=== PATIENT | female | born 1990 | race Caucasian/White ===

== ENCOUNTER 2019-03-09 20:55 | Emergency (ER) | payer MEDICAID, SELFPAY ==
[2019-03-09 20:58] VITALS: BP 131/84; PULSE 86; RESP 16; TEMP 36.7; O2SAT 100
--- NOTE | 2019-03-09 21:11 | DI.CT_ITS ---
SYMPTOMS/DIAGNOSIS: RIGHT LOWER ABDOMINAL PAIN CT SCAN OF THE ABDOMEN AND PELVIS: CT scan of the abdomen and pelvis was performed following the uneventful administration of intravenous contrast material. The visualized lung bases are clear. The liver is normal in size. No suspicious hepatic mass is seen. The portal, superior mesenteric and splenic veins are patent. The gallbladder is negative. There is no biliary ductal dilatation. The pancreas is unremarkable, as are the spleen and adrenal glands. The kidneys show normal and symmetric enhancement. No evidence of a solid renal mass or obstruction. The urinary bladder is intact. The reproductive organs are unremarkable. The bowel shows no evidence of obstruction, inflammation or infection. There is a normal appendix present. The aorta is of normal caliber. No significant abdominal or pelvic adenopathy, ascites or pneumoperitoneum is present. No acute osseous abnormality is identified. There is bilateral sacroiliitis present. IMPRESSION: 1. No evidence of an acute abdomen. 2. Bilateral sacroiliitis.
--- NOTE | 2019-03-09 21:12 | W.ED.GENAD ---
Discharge Plan Disposition Patient Disposition: HOME Condition: Stable Discharge Details Chief Complaint: Abd Prob Clinical Impression: Abdominal pain Primary Care Provider: Michelle Hensely ED Provider: Ian Mathur Home Meds and New Rx's Prescriptions: New ketorolac 10 mg tablet 10 mg PO Q6H PRN (Reason: pain) 5 Days Qty: 20 RF: 0 No Action sennosides-docusate sodium [Senna Laxative-Stool Softener] 8.6-50 mg tablet 2 tab PO .AM PRNRF: 0 acetaminophen [Tylenol Extra Strength] 500 mg tablet 500 mg PO Q6H PRNRF: 0 albuterol sulfate [ProAir HFA] 90 mcg/actuation HFA aerosol inhaler 2 puff IH Q4H PRNRF: 0 L norgest/e.estradiol-e.estrad [Seasonique] 0.15 mg-30 mcg (84)/10 mcg (7) tablets,dose pack,3 month 1 tab PO DAILY Qty: 91 RF: 4 Discharge Instructions Instructions: Abdominal Pain (ED) Additional Instructions: your lab work and cat scan did not show any concerning findings follow up with [facility] within one week if you feel you are becoming more ill or having significant more pain return to the emergency department do not take the ibuprofen with toradol, if you decide to take toradol do not take ibuprofen for at least 6 hours Medical Decision Making 28 yo female with hx of endometriosis and ovarian cyst comes in with worsening rlq abd pain since this AM. Denies vomit, fevers, chills. On exam she does have pain over the rlq. NO other pain elsewhere in the abdomen. No vaginal bleeding or discharge. Given location of pain will obtain lab work and ct imaging to further eval for causes of her pain such as appendicitis ct imaging and labs unremarkable, has mild rlq pain. Could be small cyst vs endometriosis. Will d/c with toradol po as she states this has helped in the past and advised f/u with her obygn provider and return precautions given Differential Diagnosis appendicitis, ovarian cyst Imaging Data Radiologic Study: Attestation: I personally reviewed and interpreted this imaging study as follows: Imaging: CT Scan Radiologist's impression: IMPRESSION: No acute findings. Bilateral sacroiliitis. Lab Data Lab results reviewed: Yes I reviewed the patient's lab results. HPI General Mode of arrival: ambulatory. Date/Time Provider Initiated Documentation: 03/09/19 20:56. Limitations to Documentation: no limitations. Information obtained by: patient. History of Present Illness 28 year old F presents to the emergency department with the chief complaint of right lower abdominal pain, described as moderate, Quality is described as stabbing and aching, and is localized to the abdomen. Patient reports no radiation. Patient started experiencing this day(s) (1) and it has been constant. No relieving factors improve symptom(s), No exacerbating factors reported . Patient did receive the following treatments prior to arrival, none Related Data Home Medications Medication Instructions Recorded Confirmed acetaminophen 500 mg tablet 500 mg PO Q6H PRN 09/18/18 03/09/19 albuterol sulfate 90 mcg/actuation 2 puff IH Q4H PRN gm 09/18/18 03/09/19 aerosol inhaler sennosides 8.6 mg-docusate sodium 2 tab PO .AM PRN tab 09/18/18 03/09/19 50 mg tablet L norgest/e.estradiol-e.estrad 1 tab PO DAILY #91 dose pk 01/09/19 03/09/19 0.15 mg-30 mcg (84)/10 mcg(7) tabs,3mos ketorolac 10 mg PO Q6H PRN 5 Days #20 tab 03/09/19 Previous Rx's Medication Instructions Recorded L norgest/e.estradiol-e.estrad 1 tab PO DAILY #91 dose pk 01/09/19 0.15 mg-30 mcg (84)/10 mcg(7) tabs,3mos ketorolac 10 mg PO Q6H PRN 5 Days #20 tab 03/09/19 Allergies Allergy/AdvReac Type Severity Reaction Status Date / Time lidocaine Allergy Severe swelling Verified 03/09/19 21:02 at site -golf ball sized Penicillins Allergy Severe rash ans Verified 03/09/19 21:02 respiratory distress procainamide Allergy Unknown Verified 03/09/19 21:02 General Stated Complaint: Abd Prob SAL: 3 Review of Systems Review of Systems All systems reviewed & are unremarkable except as noted in HPI and below Constitutional Denies chills, Denies fever(s) and Denies weakness ENT Denies change in voice Cardiovascular Denies chest pain and Denies dyspnea Respiratory Denies dyspnea Gastrointestinal Denies nausea and Denies vomiting Neurologic Denies weakness Allergic/Immunologic Denies urticaria PFSH Surgical History (Updated 11/07/18 @ 17:29 by Elise Garces MD) H/O endoscopy (Ruled-out) H/O laparoscopy (Resolved) History of tonsillectomy (Resolved) Family History (Updated 11/07/18 @ 17:29 by Elise Garces MD) Sister Abnormal uterine bleeding (AUB) Social History (Updated 11/07/18 @ 17:32 by Elise Garces MD) Smoking/Tobacco Use Status: Current every day Alcohol Intake: current Alcohol Intake frequency: a few times a month Drug use: Never Substance use type: does not use Household members: spouse and children Number of Children: 3 current occupation: [employer] Sexually active: Yes (Experiences deep dyspareunia) What is your relationship status?: Panel score (0-1 are the most socially isolated patients): 1 Seatbelt use: always Additional Social history: H-[employer]. 5 years. Children: Maricel Razabeth 7yo, Alfonzo 5 yo, Annie 2 yo. Female Reproductive History Menstrual control method: permanent sterilization History History 4 Para Hx # Term Pregnancies 3 Multiple births Hx # Pregnancies Ectopic pregnancies AB induced Hx Number of Living Children AB spontaneous Exam Const General: no acute distress Orientation: alert HENMT Head: normal to inspection Ears: external ears normal General nose exam: external nose normal Mouth: moist mucous membranes Eyes General: appearance normal, both eyes and all related structures Neck Neck: normal visual inspection Resp Effort & Inspection: normal respiratory effort and able to speak in complete sentences Cardio Rate: regular rate GI Palpation: soft Skin General skin exam: no rashes or lesions noted Neuro General: alert and oriented x3 Extrem General: normal to inspection Psych Mental Status: mental status grossly normal Course Vital Signs Temperature 36.7 C 03/09/19 20:58 Pulse 86 03/09/19 20:58 Respiratory Rate 16 03/09/19 20:58 Blood Pressure 131/84 03/09/19 20:58 Pulse Oximetry 100 03/09/19 20:58 Temperature 36.7 C 03/09/19 20:58 Temperature Source Skin 03/09/19 20:58 Pulse 86 03/09/19 20:58 Respiratory Rate 16 03/09/19 20:58 Respiratory Effort Non-Labored 03/09/19 21:00 Blood Pressure 131/84 03/09/19 20:58 Pulse Oximetry 100 03/09/19 20:58 Oxygen Delivery Method Room Air 03/09/19 20:58 Oxygen Flow Rate 0 03/09/19 20:58 Pain Level 9 03/09/19 20:58
[2019-03-09] MEDS: Normal Saline 1,000 ML 1000 ML IV (21:33)
[2019-03-09] MEDS: Ketorolac 15 MG/ML VIAL IVP (21:34)
[2019-03-09 21:40] LABS: Abs Immature Grans 0.03 k/cumm (0.0-0.09); Absolute Basophil Count 0.02 k/cumm (0.0-0.2); Absolute Eosinophil Count 0.38 k/cumm (0.0-0.7); Absolute Lymphocyte Count 3.16 k/cumm (1.2-3.4); Absolute Monocyte Count 0.66 k/cumm (0.11-0.7); Absolute Neutrophil Count 5.96 k/cumm (1.2-6.7); Basophils % 0.2; Eosinophils % 3.7; HCT 40.9 % (36.0-46.0); HGB 13.8 g/dL (12.0-15.5); Immature Grans % 0.3; Mean Corp. HGB Concentration 33.7 g/dL (32.0-36.0); Mean Corpuscular Hemoglobin 29.4 pg (27.0-33.0); Mean Corpuscular Volume 87.2 fL (80-95); Mean Platelet Volume 10.6 fL (8.0-11.0); Monocytes % 6.5; Neutrophils % 58.3; Platelet Count 222 x1000/uL (130-400); RBC 4.69 m/cumm (4.00-5.20); RBC Distribution Width 13.4 % (11.7-14.6); White Blood Cell Count 10.21 k/cumm (4.4-10.8)
[2019-03-09 21:46] LABS: Bilirubin Negative (Negative); Blood Large (Negative); Clarity Clear (Clear); Glucose Negative (Negative); Ketones Trace mg/dL (Negative); Leukocyte Esterase Negative (Negative); Nitrite Negative (Negative); Specific Gravity 1.015 (1.005-1.025); pH 7.5 (5-8)
[2019-03-09] MEDS: Omnipaque 350 MG/ML 100 ML BTL IJ (21:51)
[2019-03-09 21:54] LABS: Bacteria Few HPF (Negative); C & S Indicated? No; Casts Negative LPF (Negative); Crystals Negative HPF (Negative); Epithelial Cells Rare HPF (Negative); Mucus Negative (Negative); Other Cells Negative (Negative); RBC >50 (0-2); WBC 0-2 HPF (0-5)
[2019-03-09 21:56] LABS: ALT 38 U/L (12-78); AST 13 U/L (15-37); Albumin 3.7 g/dL (3.4-5.0); Alkaline Phosphatase 74 U/L (46-116); Anion Gap 8.8 mmol/L (3-11); BUN 12 mg/dL (7-18); Bilirubin, Total 0.2 mg/dL (0.2-1.0); CO2 26.2 mmol/L (21.0-32.0); CREATININE 0.92 mg/dL (0.55-1.02); Calcium 8.6 mg/dL (8.5-10.1); Chloride 106 mmol/L (98-107); Glucose 106 mg/dL (70-100); Lipase 102 U/L (73-393); Potassium 3.4 mmol/L (3.5-5.1); Sodium 141 mmol/L (136-145)
--- NOTE | 2019-03-09 22:03 | DI.VRAD_ITS ---
EXAM: CT Abdomen and Pelvis With Contrast EXAM DATE/TIME: 03/09/2019 9:12 PM CLINICAL HISTORY: 28 years old, female; Localized; Right lower quadrant (rlq); Patient HX: Right lower abdominal pain TECHNIQUE: Imaging protocol: Axial computed tomography images of the abdomen and pelvis with intravenous contrast. Coronal and sagittal reformatted images were created and reviewed. COMPARISON: No relevant prior studies available. FINDINGS: Liver: No suspicious lesions. Gallbladder and bile ducts: Contracted gallbladder. Pancreas: Unremarkable. No ductal dilation. Spleen: No suspicious lesions. Adrenals: Unremarkalbe. No suspicious mass. Kidneys and ureters: Unremarkable. No hydro. No suspicious lesions. Stomach and bowel: Unremarkable. No obstruction or inflammatory changes. Appendix: Normal appendix. Intraperitoneal space: No free air. No significant fluid collection. Vasculature: Unremarkable. No acute findings Lymph nodes: Unremarkable. Bladder: Unremarkable as visualized. Reproductive: Unremarkable as visualized. Bones/joints: Sclerosis around both SI joints. Soft tissues: Unremarkable. IMPRESSION: No acute findings. Bilateral sacroiliitis. Dictated and Authenticated by: Tre Bustillo MD. Ordering:FLETCHER Sosa MD
[2019-03-09 22:46] VITALS: BP 121/67; PULSE 69; RESP 16; O2SAT 99
== END 2019-03-09 22:55 | disposition home or self-care (01) ==
PROVIDERS: Emergency Provider Emergency Medicine; PCP Nurse Practitioner Family
DX: R10.31 Right lower quadrant pain (principal)
CPT/HCPCS: 36415; 80053; 81025; 83690; 96360; 96374; 99285; 74177; 81003; 81015; 85025; 99284; J1885; J3490

== ENCOUNTER 2019-10-21 08:58 | Outpatient (CLI) | payer MEDICAID, SELFPAY ==
--- NOTE | 2019-10-21 13:00 | DI.US_ITS ---
EXAM: US PELVIS AND TRANSVAGINAL CLINICAL HISTORY: DYSMENORRHEA, R10.2 PELVIC AND PERINEAL PAIN, N80.0 ENDOMETRIOSIS. TECHNIQUE: Transabdominal and transvaginal pelvic ultrasound was performed using standard protocol. COMPARISON: No exams were available for comparison FINDINGS: KIDNEYS: Kidneys are symmetric in size. No evidence of renal calculi. No evidence of hydronephrosis. No renal mass or cyst identified. UTERUS: Position: Anteverted. Size: A 0.3 long x 3.8 AP x 5.1 transverse cm Endometrium: 0.6 cm. Normal for patient's menstrual status. Myometrium: Unremarkable. Cervix: Unremarkable. OVARIES: Right: 2.7 x 2.0 x 2.4 cm Cyst or mass: Small follicular cysts. Left: Status post left oophorectomy DOPPLER: Color: Symmetric and uniform flow to the right ovary. No hyperemia. Duplex: Normal right ovarian arterial waveform visualized. CUL-DE-SAC: Free fluid: None. Other: None. IMPRESSION: 1. Normal sonographic appearance of the kidneys. 2. Normal-appearing uterus with endometrial stripe within normal limits. 3. Status post left oophorectomy. Unremarkable right ovary. DATA REPOSITORY:
== END 2019-10-21 09:18 ==
PROVIDERS: PCP Nurse Practitioner Family; Visit Provider Obstetrics & Gynecology Gynecology
DX: R10.2 Pelvic and perineal pain (principal); N80.9 Endometriosis, unspecified; N94.6 Dysmenorrhea, unspecified; N83.01 Follicular cyst of right ovary; Z90.721 Acquired absence of ovaries, unilateral
CPT/HCPCS: 76830; 76856

== ENCOUNTER 2019-12-14 08:28 | Outpatient (CLI) | payer MEDICAID, SELFPAY ==
[2019-12-14 19:51] LABS: COVID-19 RT-PCR UVMMC Result Negative (Negative)
== END 2019-12-14 08:48 ==
PROVIDERS: PCP Nurse Practitioner Family; Visit Provider Obstetrics & Gynecology Gynecology
DX: Z11.59 Encounter for screening for other viral diseases (principal)
CPT/HCPCS: U0003

== ENCOUNTER 2019-12-16 03:46 | Outpatient (CLI) | payer MEDICAID, SELFPAY ==
[2019-12-16 12:08] LABS: Abs Immature Grans 0.03 k/cumm (0.0-0.09); Absolute Basophil Count 0.03 k/cumm (0.0-0.2); Absolute Eosinophil Count 0.15 k/cumm (0.0-0.7); Absolute Lymphocyte Count 2.41 k/cumm (1.2-3.4); Absolute Monocyte Count 0.56 k/cumm (0.11-0.7); Absolute Neutrophil Count 5.66 k/cumm (1.2-6.7); Basophils % 0.3; Eosinophils % 1.7; HCT 42.5 % (36.0-46.0); HGB 14.3 g/dL (12.0-15.5); Immature Grans % 0.3 %; Lymphocytes % 27.3; Mean Corp. HGB Concentration 33.6 g/dL (32.0-36.0); Mean Corpuscular Hemoglobin 30.2 pg (27.0-33.0); Mean Corpuscular Volume 89.7 fL (80-95); Mean Platelet Volume 10.3 fL (8.0-11.0); Monocytes % 6.3; Neutrophils % 64.1; Platelet Count 258 x1000/uL (130-400); RBC 4.74 m/cumm (4.00-5.20); RBC Distribution Width 13.3 % (11.7-14.6); White Blood Cell Count 8.84 k/cumm (4.4-10.8)
[2019-12-16 13:01] LABS: ALT 22 U/L (14-59); AST 15 U/L (15-37); Albumin 3.9 g/dL (3.4-5.0); Alkaline Phosphatase 54 U/L (46-116); Anion Gap 9.2 mmol/L (3-11); BUN 12 mg/dL (7-18); Bilirubin, Total 0.3 mg/dL (0.2-1.0); CO2 26.8 mmol/L (21.0-32.0); CREATININE 0.87 mg/dL (0.55-1.02); Calcium 8.7 mg/dL (8.5-10.1); Chloride 103 mmol/L (98-107); Glucose 85 mg/dL (74-106); HCG Quant, Pregnancy < 1 mIU/mL (1-3); Potassium 4.3 mmol/L (3.5-5.1); Sodium 139 mmol/L (136-145); Total Protein 6.9 g/dL (6.4-8.2)
== END 2019-12-16 04:06 ==
PROVIDERS: PCP Nurse Practitioner Family; Visit Provider Obstetrics & Gynecology Gynecology
DX: N94.6 Dysmenorrhea, unspecified (principal); Z01.818 Encounter for other preprocedural examination; Z01.812 Encounter for preprocedural laboratory examination
CPT/HCPCS: 36415; 80053; 86850; 86900; 86901; 84702; 85025

== ENCOUNTER 2019-12-18 10:15 | Observation (INO) | payer MEDICAID, SELFPAY ==
[2019-12-18] VITALS (10 sets, daily range): BP systolic 94–114; BP diastolic 47–81; PULSE 60–86; RESP 12–18; TEMP 36–37.1; O2SAT 93–100
[2019-12-18] MEDS: Lactated Ringers 1,000 ML 125 ML IV ×3 (07:00→17:47)
[2019-12-18] MEDS: CLINDAMYCIN 900 MG/50 ML BAG 50 MG IVPB (08:16)
--- NOTE | 2019-12-18 09:18 | UTER_PTH ---
PATIENT: ALEXIS LEE LOC: [id number]#:[id number] AGE/SX: 29/F ROOM: RE12/18/[address]: Elise Garces : 1990 BED: A DIS: 12/19/2019 SPEC #: [id number] RECD: 12/18/19 11:56 STATUS: DRE REQ #: [id number] MEGHAN: 12/18/19 09:[address]: Elise Garces DEPT: Surgical Specimen RECD BY: David Coelho ENTERED: 12/18/19 11:58 SP TYPE: UTER OTHR DR: Michelle Hensley Tissues: 1 - UTERUS W OR W/O OVARIES(NOT TUMOR/PROLAPSE) Procedures: GROSS AND MICRO LEVEL 5 Comments: [id number]
[2019-12-18] MEDS: Ondansetron 4 MG/2 ML VIAL IVP (10:44)
[2019-12-18] MEDS: Ketorolac 30 MG/ML VIAL IVP ×3 (10:45→21:13)
--- NOTE | 2019-12-18 11:45 | NUR.NOTE ---
Addendum entered by Suze Estes 12/18/19 18:04: Pt received from PACU in stable condition, S/P vaginal hysterectomy. Feels lethargic yet but arousable by name. 16 Fr F/C in place and draining small amount of pale yellow urine. IV fluids running at 128/hr, Lactated Ringers, to a 20 G to the right hand. Pt still reports that LE's are numb, she is unable to move them at this time. Laverne pad in place with no drainage at this time. Pt denies N/V/D. Has taken sips of butch jyothi and water with no ill effects noted. Upon arrival to floor pt was oriented to room, call lang, and staff. SCD's applied as per order. At this time pt denies pain. Warm blanket placed on pt as per her request, and hydration provided and left bedside. Original Note: Nursing Note:
[2019-12-18] MEDS: Acetaminophen 500 MG TAB PO ×2 (14:16→22:05)
[2019-12-18] MEDS: Normal Saline Flush 10 ML SYR IV (15:33)
[2019-12-18] MEDS: Docusate Sodium 100 MG CAP PO (20:40)
[2019-12-19 00:13] VITALS: BP 107/68; PULSE 59; RESP 16; TEMP 36.4; O2SAT 99
[2019-12-19] MEDS: Lactated Ringers 1,000 ML 125 ML IV (01:50)
[2019-12-19 03:30] VITALS: BP 104/67; PULSE 52; RESP 16; TEMP 36.8; O2SAT 100
[2019-12-19] MEDS: Ketorolac 30 MG/ML VIAL IVP ×2 (03:55→10:16)
[2019-12-19] MEDS: Normal Saline Flush 10 ML SYR IV ×2 (03:56→10:16)
[2019-12-19] MEDS: Acetaminophen 500 MG TAB PO (06:16)
[2019-12-19 06:57] LABS: HCT 34.8 % (36.0-46.0); HGB 11.7 g/dL (12.0-15.5); Mean Corp. HGB Concentration 33.6 g/dL (32.0-36.0); Mean Corpuscular Hemoglobin 30.2 pg (27.0-33.0); Mean Corpuscular Volume 89.9 fL (80-95); Mean Platelet Volume 10.8 fL (8.0-11.0); Platelet Count 226 x1000/uL (130-400); RBC 3.87 m/cumm (4.00-5.20); RBC Distribution Width 12.9 % (11.7-14.6); White Blood Cell Count 15.32 k/cumm (4.4-10.8)
[2019-12-19 07:25] VITALS: BP 102/64; PULSE 56; RESP 17; TEMP 36.9; O2SAT 99
[2019-12-19] MEDS: oxyCODONE 5 mg/Acetaminophen 325 mg TAB PO (09:09)
[2019-12-19] MEDS: Docusate Sodium 100 MG CAP PO (09:10)
--- NOTE | 2019-12-19 09:42 | W.PM.DS.N ---
Date of service: 12/19/19 Time of Service: 09:42 DS: Diagnosis Discharge Diagnosis (1) Pelvic pain: Status: Chronic (2) Dysmenorrhea: Status: Acute (3) H/O vaginal hysterectomy: Status: Acute Discharge Plan Disposition Patient Disposition: HOME Condition: Improving Discharge Details Reason For Visit: VAGINAL HYSTERECTOMY Admit Date/Time: 12/18/19 10:15 Admit Provider: Elise Garces Attending Provider: Elise Garces Primary Care Provider: [facility] Course Hospital Course: Patient was admitted the morning of surgery and underwent a transvaginal hysterectomy. She had previously had a bilateral salpingectomy and left nephrectomy. Postop course was uncomplicated. EBL approximately 200 cc she was able to void spontaneously postop day 1 tolerating regular diet with pain controlled with nonsteroidal anti-inflammatories and Percocet. She was discharged to home with instructions to have a telemedicine visit approximately 2 weeks to review pathology. Patient was given instructions regarding pelvic rest. She will return to work in approximately 6 weeks and will have a [facility] office visit prior to her return to work. Home Meds and New Rx's Prescriptions: No Action medroxyprogesterone 150 mg/mL syringe 150 mg IM [id number] Qty: 1 RF: 4 oxycodone-acetaminophen [Endocet] 5-325 mg tablet 1 tab PO Q6H MDD 4 PRN (Reason: pain) Qty: 30 RF: 0 sennosides-docusate sodium [Senna Laxative-Stool Softener] 8.6-50 mg tablet 2 tab PO .AM PRNRF: 0 acetaminophen [Tylenol Extra Strength] 500 mg tablet 500 mg PO Q6H PRNRF: 0 albuterol sulfate [ProAir HFA] 90 mcg/actuation HFA aerosol inhaler 2 puff IH Q4H PRNRF: 0 Discharge Instructions Stand Alone Forms: [facility]SU Post Gynecology Surgery Activity:: Activity as Tolerated Equipment/Supplies:: No Equipment Needed Diet:: As Tolerated Discharge Orders Discharge Orders: Discharge Order (Routine); Ordered 12/19/19 Ordered By: Elise Garces DS: Summary Status at Discharge Functional status at discharge: independent ambulation Overall status at discharge: patient is progressing back to baseline Mental Status: mental status grossly normal Speech and Movement: speech and movement normal Mood: congruent mood Affect: normal affect Exam Const General: no acute distress Nutritional Appearance: average body habitus Orientation: alert, awake and oriented x3 Resp Effort & Inspection: normal respiratory effort Auscultation: clear to auscultation bilaterally Cardio Rate: regular rate Rhythm: regular rhythm GI Inspection: normal to inspection Palpation: soft, no hepatosplenomegaly, no guarding, no masses and nontender Percussion: normal to percussion General: deferred Skin General skin exam: no rashes or lesions noted Extrem General: normal to inspection, full ROM and capillary refill normal Psych Appearance: grossly normal Mental Status: mental status grossly normal Speech and Movement: speech and movement normal Mood: congruent mood Affect: normal affect DS: Data Vitals/I&O Vitals and I&O: Vital Signs Temperature 98.4 F 12/19/19 07:25 Temperature Source Temporal Artery Scan 12/19/19 07:25 Pulse 56 L 12/19/19 07:25 Pulse Rhythm Irregular 12/19/19 02:29 Respiratory Rate 17 12/19/19 07:25 Respiratory Effort Non-Labored 12/19/19 02:29 Respiratory Depth Normal 12/19/19 02:29 Respiratory Pattern Normal 12/19/19 02:29 Blood Pressure 102/64 12/19/19 07:25 Pulse Oximetry 99 12/19/19 07:25 Respiratory End-tidal CO2 30 12/18/19 11:20 Oxygen Delivery Method Room Air 12/19/19 07:25 Oxygen Flow Rate 0 12/19/19 07:25 Pain Level 5 12/19/19 09:09 Comment 12/18/19 13:43 Intake & Output 12/18/19 12/18/19 12/19/19 11:59 23:59 11:59 Intake Total 1208.5 / 2976.0 1767.5 / 2976.0 1100 / 1100 Output Total 400 / 1000 600 / 1000 1450 / 1450 Balance 808.5 / 1975.0 1167.5 / 1975.0 -350 / -350 Weight 151 lb 7.321 oz Intake: IV 1208.5 / 1995.0 787.5 / 1995.0 1000 / 1000 Oral 980 / 980 100 / 100 Output: Urine 200 / 800 600 / 800 1450 / 1450 Estimated Blood Loss 200 / 200 Other: Urine Color Yellow Yellow Yellow Urine Appearance Clear Cloudy Clear Comment PACU. Emesis Description None Data Completed and Pending Labs on day of discharge: Labs from last 24 hours 12/19/19 06:15 WBC 15.32 H RBC 3.87 L Hgb 11.7 L D Hct 34.8 L MCV 89.9 MCH 30.2 MCHC 33.6 RDW 12.9 Plt Count 226 MPV 10.8 PFSH Social History (Updated 11/07/18 @ 17:32 by Elise Garces MD) Smoking/Tobacco Use Status: Current every day Tobacco Type: cigarettes Tobacco: How many years used: 14 Alcohol Intake: current Alcohol Intake frequency: a few times a month Alcohol type: hard liquor Drug use: Never Substance use type: does not use Household members: spouse and children Number of Children: 3 current occupation: sheep s[employer] Sexually active: Yes (Experiences deep dyspareunia) What is your relationship status?: Panel score (0-1 are the most socially isolated patients): 1 Seatbelt use: always Do you feel safe at home: Yes Do you feel safe in your relationship?: Yes Female Reproductive History Menstrual control method: permanent sterilization History History 4 Para Hx # Term Pregnancies 3 Multiple births Hx # Pregnancies Ectopic pregnancies AB induced Hx Number of Living Children AB spontaneous
--- NOTE | 2019-12-19 09:50 | ROE_ITS ---
Date of service: 12/19/19 Time of Service: 09:50 Operative Note Operative Note DATE OF PROCEDURE: 12/18/19 PRE-OP DIAGNOSIS: Dysmenorrhea, pelvic pain POST-OP DIAGNOSIS: same PROCEDURE: Vaginal hysterectomy and bladder cystoscopy SURGEON: Elise Garces [employer] SUPERVISOR: Lyssa Agee ANESTHESIA: spinal ESTIMATED BLOOD LOSS: 200 PATHOLOGY: other (Uterus and cervix) COMPLICATIONS: None Patient was transported to: PACU Patient's condition: stable Indications: 29-year-old female with longstanding history of dysmenorrhea and pelvic pain not amenable to treatment with continuous OCPs or Depo-Provera. Normal imaging on pelvic ultrasound. Findings: Normal-appearing uterus and cervix. Right ovary normal in appearance. Right and left fallopian tube and left ovary surgically absent. Procedure Description: Description of procedure Patient was brought to the OR room 2 where she was placed in the sitting position and spinal anesthesia was administered without difficulty. She received 2 g of Ancef upon arrival in the OR. SCDs were in place. Terrell catheter was placed to gravity drainage patient was prepped and draped in the usual sterile fashion a surgical timeout was performed. A weighted vaginal speculum was placed in the vagina and the cervix was grasped with 2 Kareen clamps. Bovie electrocautery was then used to incise the cervix in a circumferential fashion. Visualization of the and anterior and posterior the fascial planes was performed with a combination of blunt technique and dissection using Metzenbaum scissors. Once the rectal vaginal fascia had been dissected off of the posterior body of the cervix the posterior cul-de-sac was entered sharply. Through this incision a longbilled weighted speculum was placed. This allowed mobilization of the uterosacral ligament cardinal complex away from the right and left vaginal sidewalls. The right uterosacral ligament was clamped transected and suture-ligated and held long using 0 Vicryl. A similar technique was carried out on the contralateral uterosacral ligament complex. This allowed the anterior cul-de-sac to be entered sharply and through the incision a curved Bastrop was placed to retract the bladder away from the operative field. The remaining right and left broad ligament was then clamped, cut and suture-ligated total level of the right uterine cornua which was then clamped, transected and suture-ligated. Small amount of oozing at the site was noted and controlled with electrocautery achieving with excellent hemostasis. Similar technique was carried out on the left uterine cornua. The uterus was freed and passed off of the operative field. The remnant of the the right fallopian tube was visualized and was approximately 2 to 3 mm in length attached to the body of the right ovary it was removed and the pedicle site cauterized. Right ovary appeared grossly normal. Left adnexa was surgically absent. The peritoneum of the vaginal cuff was closed with a pursestring suture of 2-0 Vicryl. The vaginal cuff was reapproximated in a vertical fashion with running suture of 0 Vicryl to the level of the uterosacral ligament sutures where the suture was placed higher up on the body of each uterosacral ligament and through the lateral margins of the vaginal cuff bilaterally. The remaining vaginal cuff incision was closed with 0 Vicryl in a running fashion. There is excellent hemostasis of the vaginal cuff at the completion of the procedure. The instruments removed from the patient's vagina and a cystoscopy was performed using normal saline as the distention medium. Both ureters were visualized and noted to have a brisk chest of urine bilaterally. Terrell catheters was reinserted to gravity drainage patient was placed in the dorsal supine position awakened from anesthesia extubated and transported recovery area in stable condition all sponge lap needle counts correct x2
== END 2019-12-19 10:46 | disposition home or self-care (01) ==
LOC: MS 11:31
PROVIDERS: Admitting Provider Obstetrics & Gynecology Gynecology; PCP Nurse Practitioner Family; Visit Provider Obstetrics & Gynecology Gynecology
PROC: 0UT97ZZ Resection of Uterus, Via Natural or Artificial Opening (ICD-10-PCS; CPT 58260; principal; 2019-12-18 07:30)
PROC: 0TJB8ZZ Inspection of Bladder, Via Natural or Artificial Opening Endoscopic (ICD-10-PCS; CPT 52000; 2019-12-18 07:30)
DX: R10.2 Pelvic and perineal pain (principal); N94.6 Dysmenorrhea, unspecified; N80.0 Endometriosis of uterus; Z90.710 Acquired absence of both cervix and uterus
CPT/HCPCS: 58260; 52000; 36415; 85027; NC; 88307; G0378; J1100; J1580; J1885; J2001; J2250; J2405; J2704; J3010